=== PATIENT | female | born 1940 | race African-American/Black ===

== ENCOUNTER → 2020-04-16 13:02 | Outpatient (BNVA) | payer MEDICARE, SELFPAY | PROVIDERS: PCP Internal Medicine; Visit Provider Surgery Vascular Surgery | DX: I73.9 Peripheral vascular disease, unspecified (principal) | CPT/HCPCS: 99202 ==

== ENCOUNTER 2020-05-02 06:02 | Day surgery (SDC) | payer MEDICARE, SELFPAY ==
[2020-05-02] VITALS (10 sets, daily range): BP systolic 137–170; BP diastolic 54–78; PULSE 61–75; RESP 16; TEMP 36.1–36.2; O2SAT 97–100; BMI 34.6
[2020-05-02 06:26] LABS: MANUAL DIFF FLAG NO
[2020-05-02 06:27] LABS: Basophils Absolute Auto 0.1 X10*3/uL (0.0-0.2); Basophils Percent Auto 0.7 % (0-2); Eosinophils Absolute Auto 0.2 X10*3/uL (0.0-0.4); Eosinophils Percent Auto 2.6 % (0-4); Hematocrit 33.2 % (37-47); Imm Gran Abs Auto 0.04 X10*3/uL (0.00-0.03); Imm Gran Pct Auto 0.5 % (0.0-0.4); Lymphocytes Absolute Auto 2.1 X10*3/uL (1.2-4.9); Lymphocytes Percent Auto 24.5 % (20-40); Mean Corpuscular HGB Conc 33.1 g/dl (31.0-35.0); Mean Corpuscular Hemoglobin 28.4 pg (27.0-33.0); Mean Corpuscular Volume 85.6 fL (80-98); Mean Platelet Volume 8.1 fL (9.4-12.3); Monocytes Absolute Auto 0.7 X10*3/uL (0.1-1.2); Monocytes Percent Auto 8.4 % (2-11); Neutrophils Absolute Auto 5.3 X10*3/uL (2.0-8.3); Neutrophils Percent Auto 63.3 % (45-73); Platelet Count 429 X10*3/uL (160-400); Red Blood Count 3.88 X10*6/uL (4.20-5.50); Red Cell Distribution Width 12.6 % (11.0-16.0); White Blood Count 8.4 X10*3/uL (4.8-10.8)
[2020-05-02 06:50] LABS: Anion Gap 14 (12-20); Blood Urea Nitrogen 23 mg/dL (9-16); Carbon Dioxide 23 mmol/L (22-29); Chloride 98 mmol/L (96-108); Creatinine Clr Calc Pharmacy 33.7; Estimated Glomerular Filt Rate 31; Glucose Random 178 mg/dL (60-115); Potassium 4.7 mmol/l (3.3-5.1); Sodium 130 mmol/L (135-145)
[2020-05-02 06:54] LABS: Glucose, Whole Blood 168 mg/dL (60-115)
[2020-05-02 06:56] LABS: INTERNATIONAL NORM RATIO 0.9 (0.9-1.1); Prothrombin Time 10.6 SEC (10.8-13.0)
[2020-05-02 06:59] LABS: Partial Thromboplastin Time 41.6 SEC (24.1-38.0)
[2020-05-02] MEDS: iohexoL 300 MG/ML 100 ML INFUS..BTL IV (09:00)
[2020-05-02] MEDS: Lidocaine HCl 1 % MPF 5 ML VIAL 10 ML SUBCUT (09:01)
--- NOTE | 2020-05-03 12:46 | OP_ITS ---
SURGEON: Jason Draper MD INDICATIONS: Bebe is an 79-year-old female with prior noninvasive testing that demonstrates diminished flow. She has continued lower extremity pain and swelling. She now presents for endovascular intervention. Risks, benefits, and complications were discussed in detail with the patient. The patient understood and consented. PREOPERATIVE DIAGNOSIS: POSTOPERATIVE DIAGNOSIS: PROCEDURE PERFORMED: ESTIMATED BLOOD LOSS: Minimal. COMPLICATIONS: ANESTHESIA: Local with moderate conscious sedation performed by mo for a total 19 minutes. ASSISTANTS: SPECIMENS: None. PREPROCEDURE DIAGNOSIS: Atherosclerosis with activity limiting claudication. POSTPROCEDURE DIAGNOSIS: Atherosclerosis with activity limiting claudication PROCEDURES PERFORMED: 1. Ultrasound-guided left common femoral access. 2. Aortogram with right lower extremity runoff. DESCRIPTION OF PROCEDURE: The patient was brought to the angiography suite, prior to which, a time-out was called for patient identification and site verification. Bilateral groins were prepped and draped in standard surgical fashion. Under ultrasound guidance, left common femoral was accessed using micropuncture needle, wire, subsequently 4-Tongan sheath. Flush catheter was brought up to the level of the aorta. Aortogram was then undertaken, brought down to the level of the iliacs. This was subsequently imaged and then brought up and over into the right SFA, where it was parked, through which runoff study was undertaken. Of note, she had a right knee prosthetic. Multiple orthogonal views had to be taken to image the popliteal artery. Overall, no significant stenosis was identified. No intervention was indicated. Catheter, wire, and sheath were removed. Direct pressure was held for 10 minutes. The patient tolerated the procedure well, returned to Recovery with stable vitals. INTERPRETATION OF FILMS: 1. Ultrasound guidance demonstrated appropriate puncture. 2. Aortogram demonstrated no significant disease. Good flow down bilateral iliacs. 3. Right lower extremity study demonstrated appropriate flow through the common femoral, profunda, SFA all the way down to the popliteal and good 3-vessel runoff. CONCLUSION: Successful diagnostic angiogram. There appears to be no flow-limiting disease. At the current time, would continue with medical management. DRAINS: None. MD JORGE Shah/NABEEL / [phone]
== END 2020-05-02 23:59 | disposition home or self-care (01) ==
PROVIDERS: PCP Internal Medicine; Visit Provider Surgery Vascular Surgery
DX: E11.51 Type 2 diabetes mellitus with diabetic peripheral angiopathy without gangrene (principal); I70.201 Unspecified atherosclerosis of native arteries of extremities, right leg; M79.604 Pain in right leg
CPT/HCPCS: 36247; 36415; 75630; 75710; 76937; 80048; 82947; 85025; 85610; 85730; 99152; C1725; C1760; C1769; C1887; C1894; J2250; J3010; Q9967

== ENCOUNTER → 2020-06-07 09:14 | Outpatient (BNVA) | payer MEDICARE, SELFPAY | PROVIDERS: PCP Internal Medicine; Visit Provider Surgery Vascular Surgery | DX: I73.9 Peripheral vascular disease, unspecified (principal) | CPT/HCPCS: 99212 ==

== ENCOUNTER → 2020-08-07 10:40 | Outpatient (BNVA) | payer MEDICARE, SELFPAY | PROVIDERS: PCP Internal Medicine; Visit Provider Surgery Vascular Surgery | DX: I73.9 Peripheral vascular disease, unspecified (principal) | CPT/HCPCS: Q3014 ==

== ENCOUNTER 2020-08-15 06:14 | Day surgery (SDC) | payer MEDICARE, SELFPAY ==
[2020-08-15] VITALS (10 sets, daily range): BP systolic 145–164; BP diastolic 54–72; PULSE 64–78; RESP 16–20; TEMP 36.2–36.6; O2SAT 99–100; BMI 33.2
[2020-08-15 06:31] LABS: MANUAL DIFF FLAG NO
[2020-08-15 06:33] LABS: Basophils Absolute Auto 0.1 X10*3/uL (0.0-0.2); Basophils Percent Auto 0.7 % (0-2); Eosinophils Absolute Auto 0.2 X10*3/uL (0.0-0.4); Eosinophils Percent Auto 1.9 % (0-4); Hematocrit 33.4 % (37-47); Hemoglobin 10.8 g/dl (12.0-16.0); Imm Gran Abs Auto 0.05 X10*3/uL (0.00-0.03); Imm Gran Pct Auto 0.6 % (0.0-0.4); Lymphocytes Absolute Auto 1.4 X10*3/uL (1.2-4.9); Lymphocytes Percent Auto 16.1 % (20-40); Mean Corpuscular HGB Conc 32.3 g/dl (31.0-35.0); Mean Corpuscular Hemoglobin 28.3 pg (27.0-33.0); Mean Corpuscular Volume 87.4 fL (80-98); Mean Platelet Volume 8.3 fL (9.4-12.3); Monocytes Absolute Auto 0.6 X10*3/uL (0.1-1.2); Monocytes Percent Auto 6.9 % (2-11); Neutrophils Absolute Auto 6.5 X10*3/uL (2.0-8.3); Neutrophils Percent Auto 73.8 % (45-73); Platelet Count 428 X10*3/uL (160-400); Red Blood Count 3.82 X10*6/uL (4.20-5.50); Red Cell Distribution Width 13.2 % (11.0-16.0); White Blood Count 8.8 X10*3/uL (4.8-10.8)
[2020-08-15 06:45] LABS: INTERNATIONAL NORM RATIO 0.9 (0.9-1.1); Prothrombin Time 11.1 SEC (10.8-13.0)
[2020-08-15 06:47] LABS: Partial Thromboplastin Time 45.9 SEC (24.1-38.0)
[2020-08-15 07:02] LABS: Anion Gap 16 (12-20); Blood Urea Nitrogen 31 mg/dL (9-16); Calcium 9.1 mg/dL (8.4-10.2); Carbon Dioxide 23 mmol/L (22-29); Chloride 100 mmol/L (96-108); Creatinine Clr Calc Pharmacy 36.5; Estimated Glomerular Filt Rate 35; Glucose Random 184 mg/dL (60-115); Sodium 134 mmol/L (135-145)
[2020-08-15] MEDS: 0.9 % Sodium Chloride 1,000 ML 100 ML IVCONT (07:08)
[2020-08-15 07:12] LABS: Glucose, Whole Blood 163 mg/dL (60-115)
--- NOTE | 2020-08-15 08:43 | W.PM.OPN ---
Operative Note Operative Note Date of Service: 08/15/20 Narrative: Angiogram report from [facility] Preoperative diagnosis: Atherosclerosis of left lower extremity with activity limiting claudication Postoperative diagnosis: Same Procedure: 1. Ultrasound-guided right common femoral access 2. Aortogram with left lower extremity runoff Surgeon:Jason Draper M.D. Barrel Rifler Button:None Anesthesia: Local with moderate conscious sedation for a total of 26 minutes, performed by dc Specimens:none Drains:none Estimated blood loss: Less than 10 ml Indications: 79-year-old female with persistent left lower extremity claudication. She had noninvasive testing which demonstrated TBI of 0.31. Pain has continued to progress and was Re referred by primary care physician for re-evaluation. She now presents for endovascular intervention The patient has signed the informed consent after reviewing risks, complications, benefits, and alternatives previously discussed with the patient in my office. The patient was given the opportunity to ask any additional questions or voice any concerns. All questions were answered to the patient's satisfaction. Procedure in detail: Patient was brought to the angiography suite prior to which a time-out was called for patient identification and site verification. Bilateral groins were prepped and draped in the standard surgical fashion. Under ultrasound guidance right common femoral was punctured with micro puncture needle and wire. Subsequently a precision 4 [place] sheath was then placed. [employer] wire was advanced to the level of the aorta. 4 [place] Flush catheter was brought up and parked at the level of the renal arteries. Aortogram was then undertaken. Catheter was brought down to the level of the iliac bifurcation. Iliacs were subsequently imaged. Catheter was then brought in up and over to the left side SFA. Runoff study was then undertaken. No intervention was indicated catheter wire sheath was removed. Direct pressure was held for 10 minutes. Interpretation of films: 1. Ultrasound demonstrates appropriate femoral puncture. Image of which was saved. 2. Aortogram demonstrates appropriate caliber aorta. Minimal disease. Appropriate take-off of the renals. 3. Iliac images demonstrate normal flow throughout no significant stenosis 4. Left lower extremity demonstrated good flow through the common femoral profundus femoral S SFA was patent all the way throughout. There was no flow-limiting stenosis noted in the popliteal. Multiple orthogonal views had to be undertaken due to the hardware. Below-knee had good 3 vessel runoff although somewhat smaller in caliber but flow all the way down to the foot. Conclusion: 1. Successful diagnostic angiogram with no intervention indicated. This note is constructed using voice recognition software. While every effort has been made to ensure accuracy, rv service technician errors may have been included. Thank you for allowing me to participate in the care of your patient. Yours sincerely, Jason Draper MD, FACS, R.P.V.I.
[2020-08-15] MEDS: Lidocaine HCl 1 % MPF 5 ML VIAL 10 ML SUBCUT (08:55)
[2020-08-15] MEDS: iohexoL 300 MG/ML 100 ML INFUS..BTL IV (08:56)
== END 2020-08-15 13:15 | disposition home or self-care (01) ==
PROVIDERS: PCP Internal Medicine; Visit Provider Surgery Vascular Surgery
DX: E11.51 Type 2 diabetes mellitus with diabetic peripheral angiopathy without gangrene (principal); I70.212 Atherosclerosis of native arteries of extremities with intermittent claudication, left leg; Z79.4 Long term (current) use of insulin; I10 Essential (primary) hypertension; Z79.899 Other long term (current) drug therapy
CPT/HCPCS: 36246; 36247; 36415; 75630; 76937; 76942; 80048; 82947; 85025; 85610; 85730; 99152; 99153; C1769; C1887; J2250; J3010; Q9967

== ENCOUNTER 2020-11-27 10:38 | Outpatient (REF) | payer MEDICARE, SELFPAY ==
--- NOTE | ~2020-11-27 | US_ITS ---
EXAMINATION: ANKLE-BRACHIAL INDICES SINGLE LEVEL PULSE VOLUME RECORDING ARTERIAL DUPLEX BILATERAL LEGS CLINICAL INFORMATION: Peripheral vascular disease COMPARISON: None TECHNIQUE: Ankle-brachial indices and PVR at the ankle were obtained. Duplex Doppler of the bilateral lower extremity arterial systems was performed. FINDINGS: RIGHT: Ankle-brachial index: 1.26 PVR: Mildly abnormal. Common femoral: PSV 164 cm/s. Triphasic waveform. Deep femoral: PSV 150 cm/s. Biphasic waveform. Proximal superficial femoral: PSV 93 cm/s. Biphasic waveform. Mid superficial femoral: PSV 92 cm/s. Biphasic waveform. Distal superficial femoral: PSV 79 cm/s. Biphasic waveform. Popliteal: PSV 94 cm/s. Biphasic waveform. Posterior tibial artery: PSV 101 cm/s. Biphasic waveform. LEFT: Ankle-brachial index: 1.20 PVR: Mildly abnormal. Common femoral: PSV 146 cm/s. Biphasic waveform. Deep femoral: PSV 113 cm/s. Biphasic waveform. Proximal superficial femoral: PSV 87 cm/s. Biphasic waveform. Mid superficial femoral: PSV 96 cm/s. Biphasic waveform. Distal superficial femoral: PSV 84 cm/s. Biphasic waveform. Popliteal: PSV 100 cm/s. Biphasic waveform. Posterior tibial artery: PSV 87 cm/s. Biphasic waveform. US/US SALAS complete IMPRESSION: Normal ankle-brachial indices. Mildly abnormal PVRs. Ultrasound shows mild atherosclerotic plaque without hemodynamically significant disease.
--- NOTE | ~2020-11-27 | US_ITS ---
EXAMINATION: ANKLE-BRACHIAL INDICES SINGLE LEVEL PULSE VOLUME RECORDING ARTERIAL DUPLEX BILATERAL LEGS CLINICAL INFORMATION: Peripheral vascular disease COMPARISON: None TECHNIQUE: Ankle-brachial indices and PVR at the ankle were obtained. Duplex Doppler of the bilateral lower extremity arterial systems was performed. FINDINGS: RIGHT: Ankle-brachial index: 1.26 PVR: Mildly abnormal. Common femoral: PSV 164 cm/s. Triphasic waveform. Deep femoral: PSV 150 cm/s. Biphasic waveform. Proximal superficial femoral: PSV 93 cm/s. Biphasic waveform. Mid superficial femoral: PSV 92 cm/s. Biphasic waveform. Distal superficial femoral: PSV 79 cm/s. Biphasic waveform. Popliteal: PSV 94 cm/s. Biphasic waveform. Posterior tibial artery: PSV 101 cm/s. Biphasic waveform. LEFT: Ankle-brachial index: 1.20 PVR: Mildly abnormal. Common femoral: PSV 146 cm/s. Biphasic waveform. Deep femoral: PSV 113 cm/s. Biphasic waveform. Proximal superficial femoral: PSV 87 cm/s. Biphasic waveform. Mid superficial femoral: PSV 96 cm/s. Biphasic waveform. Distal superficial femoral: PSV 84 cm/s. Biphasic waveform. Popliteal: PSV 100 cm/s. Biphasic waveform. Posterior tibial artery: PSV 87 cm/s. Biphasic waveform. US/US arterial duplex LE BI IMPRESSION: Normal ankle-brachial indices. Mildly abnormal PVRs. Ultrasound shows mild atherosclerotic plaque without hemodynamically significant disease.
== END 2020-11-27 10:39 | disposition home or self-care (01) ==
LOC: HO.US 10:38
PROVIDERS: PCP Surgery Vascular Surgery; Visit Provider Surgery Vascular Surgery
DX: I73.9 Peripheral vascular disease, unspecified (principal)
CPT/HCPCS: 93923; 93925

== ENCOUNTER → 2020-12-06 14:58 | Outpatient (BNVA) | payer MEDICARE, SELFPAY | PROVIDERS: PCP Surgery Vascular Surgery; Visit Provider Surgery Vascular Surgery | DX: I73.9 Peripheral vascular disease, unspecified (principal) | CPT/HCPCS: 99212 ==

== ENCOUNTER 2021-11-28 09:42 | Outpatient (REF) | payer MEDICARE, SELFPAY ==
--- NOTE | ~2021-11-28 | US_ITS ---
EXAMINATION: Noninvasive assessment of the bilateral lower extremities with ARTERIAL DUPLEX and ANKLE BRACHIAL INDICES (ABIs). ? CLINICAL INFORMATION: Peripheral vascular disease ? TECHNIQUE: Duplex Doppler techniques with waveform analysis and measurement of velocities in the bilateral common femoral, profunda femoris, superficial femoral, popliteal and tibial arteries were performed. Additionally, ankle pulse volume recordings, ankle pressure measurements and ankle brachial indices were obtained of the lower extremity arterial system bilaterally. The study was performed only at rest. ? COMPARISON: 11/27/2020 ? FINDINGS: ? DIRECT DUPLEX DOPPLER FINDINGS: ? RIGHT LEG: Diffuse medial calcinosis/calcified plaque Common femoral artery:?156 cm/s, phasicity: Triphasic Profunda femoris artery:??141 cm/s, phasicity: Biphasic Superficial femoral artery (proximal):?108 cm/s, phasicity: Biphasic Superficial femoral artery (mid):?140 cm/s, phasicity: Biphasic Superficial femoral artery (distal):?109 cm/s, phasicity: Biphasic Popliteal artery:?69.2 cm/s, phasicity: Biphasic Posterior tibial artery:?137 cm/s, phasicity: Triphasic Peroneal artery:?82.7 cm/s, phasicity: Biphasic ? LEFT LEG: Diffuse medial calcinosis/calcified plaque Common femoral artery:?132 cm/s, phasicity: Triphasic Profunda femoris artery:?103?cm/s, phasicity: Biphasic Superficial femoral artery (proximal):?101?cm/s, phasicity: Biphasic Superficial femoral artery (mid):?141 cm/s, phasicity: Biphasic Superficial femoral artery (distal):?108?cm/s, phasicity: Biphasic Popliteal artery:?105?cm/s, phasicity: Biphasic Posterior tibial artery:?145?cm/s, phasicity: Triphasic Peroneal artery:?73.7 cm/s, phasicity: Biphasic ANKLE-BRACHIAL INDEX: ? Right: 1.53? Left: 1.53 ? ANKLE PRESSURES: ? Right: PT greater than 200, DP?greater than 200?? Left: PT?greater than 200, DP?greater than 200?? ? ANKLE PVR WAVEFORMS: ? Right: Normal Left: Normal? ? Right leg:???Supranormal ankle-brachial index with noncompressibility. Normal velocities and waveforms seen with diffuse calcinosis of the vessel rouse. No significant arterial stenosis or occlusion ? Left leg:??? Supranormal ankle-brachial index with noncompressibility. Normal velocities and waveforms seen with diffuse calcinosis of the vessel rouse. No significant arterial stenosis or occlusion ? ?? SALAS Reference: - >1.4 = calcified vessels - 0.9 - 1.4 = normal - no significant arterial disease - 0.7 - 0.89 = mild peripheral arterial disease - 0.51 - 0.69 = moderate peripheral arterial disease - ? 0.50 = severe peripheral arterial disease - < .30 = critical arterial disease US/US arterial duplex LE BI IMPRESSION: ?
== END 2021-11-28 09:43 | disposition home or self-care (01) ==
LOC: HO.US 09:42
PROVIDERS: Visit Provider Surgery Vascular Surgery
DX: I73.9 Peripheral vascular disease, unspecified (principal)
CPT/HCPCS: 93923; 93925

== ENCOUNTER → 2021-12-10 10:57 | Outpatient (BNVA) | payer MEDICARE, SELFPAY | PROVIDERS: PCP Internal Medicine; Visit Provider Surgery Vascular Surgery | DX: I73.9 Peripheral vascular disease, unspecified (principal) | CPT/HCPCS: 99212 ==

== ENCOUNTER 2022-05-29 12:52 | Outpatient (REF) | payer MEDICARE, SELFPAY ==
--- NOTE | ~2022-05-29 | US_ITS ---
EXAMINATION: NONINVASIVE ASSESSMENT OF THE ARTERIES OF BOTH LOWER EXTREMITIES WITH PVR EXAM AND BILATERAL LOWER EXTREMITY DUPLEX Maggie Samson MD CLINICAL INFORMATION: Peripheral vascular disease TECHNIQUE: Ankle pulse volume recordings, ankle pressure measurements and ankle brachial indices were obtained of the lower extremity arterial system bilaterally in addition to duplex Doppler techniques with wave form analysis and measurement of velocities in the common femoral, profunda femoral, superficial femoral, popliteal and tibial arteries. The study was performed only at rest. COMPARISON: Noninvasive arterial exam on 11/28/2021 FINDINGS: a) AT REST: RIGHT LE. The right ankle-brachial index is: 1.33 * >0.97-1.25 = normal - no significant arterial disease * 0.75-0.96 = mild peripheral arterial disease * 0.5-0.74 = moderate peripheral arterial disease * <0.50 = severe peripheral arterial disease 2. Right ankle pressure: Elevated 3. Right ankle PVR waveform: normal. 4. Right direct duplex Doppler findings: Common femoral artery: 165 cm/s, Multiphasic Profunda femoris artery: 141 cm/s, Multiphasic Superficial femoral artery (proximal): 110 cm/s, Multiphasic Superficial femoral artery (mid): 113 cm/s, Multiphasic Superficial femoral artery (distal): 72 cm/s, Multiphasic Proximal Popliteal artery: 60 cm/s, Multiphasic Mid posterior tibial artery: 79 cm/s, Multiphasic LEFT LE. The left ankle-brachial index is: 1.33 * >0.97-1.25 = normal - no significant arterial disease * 0.75-0.96 = mild peripheral arterial disease * 0.5-0.74 = moderate peripheral arterial disease * <0.50 = severe peripheral arterial disease 2. Left ankle pressure: Elevated 3. Left ankle PVR waveform: normal. 4. Left direct duplex Doppler findings: Common femoral artery: 142 cm/s, Multiphasic Profunda femoris artery: 112 cm/s, Multiphasic Superficial femoral artery (proximal): 89 cm/s, Multiphasic Superficial femoral artery (mid): 111 cm/s, Multiphasic Superficial femoral artery (distal): 72 cm/s, Multiphasic Proximal Popliteal artery: 61 cm/s, Multiphasic Mid posterior tibial artery: 96 cm/s, Multiphasic US/US SALAS complete IMPRESSION: Elevated bilateral ankle pressures and ABIs suggest noncompressibility. Bilateral atherosclerotic disease visualized on direct duplex. No hemodynamically significant stenoses.
--- NOTE | ~2022-05-29 | US_ITS ---
EXAMINATION: NONINVASIVE ASSESSMENT OF THE ARTERIES OF BOTH LOWER EXTREMITIES WITH PVR EXAM AND BILATERAL LOWER EXTREMITY DUPLEX Maggie Samson MD CLINICAL INFORMATION: Peripheral vascular disease TECHNIQUE: Ankle pulse volume recordings, ankle pressure measurements and ankle brachial indices were obtained of the lower extremity arterial system bilaterally in addition to duplex Doppler techniques with wave form analysis and measurement of velocities in the common femoral, profunda femoral, superficial femoral, popliteal and tibial arteries. The study was performed only at rest. COMPARISON: Noninvasive arterial exam on 11/28/2021 FINDINGS: a) AT REST: RIGHT LE. The right ankle-brachial index is: 1.33 * >0.97-1.25 = normal - no significant arterial disease * 0.75-0.96 = mild peripheral arterial disease * 0.5-0.74 = moderate peripheral arterial disease * <0.50 = severe peripheral arterial disease 2. Right ankle pressure: Elevated 3. Right ankle PVR waveform: normal. 4. Right direct duplex Doppler findings: Common femoral artery: 165 cm/s, Multiphasic Profunda femoris artery: 141 cm/s, Multiphasic Superficial femoral artery (proximal): 110 cm/s, Multiphasic Superficial femoral artery (mid): 113 cm/s, Multiphasic Superficial femoral artery (distal): 72 cm/s, Multiphasic Proximal Popliteal artery: 60 cm/s, Multiphasic Mid posterior tibial artery: 79 cm/s, Multiphasic LEFT LE. The left ankle-brachial index is: 1.33 * >0.97-1.25 = normal - no significant arterial disease * 0.75-0.96 = mild peripheral arterial disease * 0.5-0.74 = moderate peripheral arterial disease * <0.50 = severe peripheral arterial disease 2. Left ankle pressure: Elevated 3. Left ankle PVR waveform: normal. 4. Left direct duplex Doppler findings: Common femoral artery: 142 cm/s, Multiphasic Profunda femoris artery: 112 cm/s, Multiphasic Superficial femoral artery (proximal): 89 cm/s, Multiphasic Superficial femoral artery (mid): 111 cm/s, Multiphasic Superficial femoral artery (distal): 72 cm/s, Multiphasic Proximal Popliteal artery: 61 cm/s, Multiphasic Mid posterior tibial artery: 96 cm/s, Multiphasic US/US arterial duplex LE BI IMPRESSION: Elevated bilateral ankle pressures and ABIs suggest noncompressibility. Bilateral atherosclerotic disease visualized on direct duplex. No hemodynamically significant stenoses.
== END 2022-05-29 12:53 | disposition home or self-care (01) ==
LOC: HO.US 12:52
PROVIDERS: Visit Provider Surgery Vascular Surgery
DX: I73.9 Peripheral vascular disease, unspecified (principal)
CPT/HCPCS: 93923; 93925

== ENCOUNTER → 2022-08-25 14:07 | Outpatient (BNVA) | payer MEDICARE, SELFPAY | PROVIDERS: PCP Internal Medicine; Visit Provider Surgery Vascular Surgery | DX: I73.9 Peripheral vascular disease, unspecified (principal) | CPT/HCPCS: 99212 ==

== ENCOUNTER 2023-08-17 10:27 | Outpatient (REF) | payer MEDICARE, SELFPAY ==
--- NOTE | ~2023-08-17 | US_ITS ---
EXAMINATION: US arterial duplex LE BI, US SALAS complete CLINICAL INFORMATION: Peripheral vascular disease, unspecified COMPARISON: Arterial duplex 05/29/2022 TECHNIQUE: Ankle pulse volume recordings, ankle pressure measurements and ankle brachial indices were obtained of the lower extremity arterial system bilaterally in addition to duplex Doppler techniques with wave form analysis and measurement of velocities in the common femoral, profunda femoral, superficial femoral, popliteal, tibial and peroneal arteries. The study was performed only at rest. FINDINGS: RIGHT LE. THE RIGHT ANKLE-BRACHIAL INDEX IS: 1.31, compared to 1.33 on prior. 2. SEGMENTAL PRESSURES (mmHg): Ankle: PT 201, DP 201 3. PVR WAVEFORMS: Ankle: Abnormal 4. DIRECT DUPLEX: Common femoral artery: 63.9 cm/s, biphasic Profunda femoris artery: 66.6 cm/s, biphasic Superficial femoral artery (proximal): 124.2 cm/s, biphasic Superficial femoral artery (mid): 82 cm/s, biphasic Superficial femoral artery (distal): 95 cm/s, biphasic Proximal Popliteal artery: 63.5 cm/s, Multiphasic Distal popliteal artery: 53.6 cm/s, biphasic Mid posterior tibial artery: 61.3 cm/s, biphasic LEFT LE. THE LEFT ANKLE-BRACHIAL INDEX IS: 1.32, compared to 1.33 on prior. 2. SEGMENTAL PRESSURES: Ankle: PT 201, DP 203 3. PVR WAVEFORMS: Ankle: Abnormal 4. DIRECT DUPLEX: Common femoral artery: 77.1 cm/s, biphasic Profunda femoris artery: 88.9 cm/s, biphasic Superficial femoral artery (proximal): 102 cm/s, biphasic Superficial femoral artery (mid): 89.4 cm/s, biphasic Superficial femoral artery (distal): 76.6 cm/s, biphasic Proximal Popliteal artery: 96 cm/s, biphasic Distal popliteal artery: 51.3 cm/s, biphasic Mid posterior tibial artery: 53.7 cm/s, biphasic US/US SALAS complete IMPRESSION: 1. Elevated ankle pressures and ABIs bilaterally suggest noncompressibility. Bilateral atherosclerotic disease visualized on direct duplex. No significant change compared to 05/29/2022. 2. There is no evidence of any hemodynamically significant lower extremity arterial disease by pressure, waveform or duplex Doppler criteria at rest.
--- NOTE | ~2023-08-17 | US_ITS ---
EXAMINATION: US arterial duplex LE BI, US SALAS complete CLINICAL INFORMATION: Peripheral vascular disease, unspecified COMPARISON: Arterial duplex 05/29/2022 TECHNIQUE: Ankle pulse volume recordings, ankle pressure measurements and ankle brachial indices were obtained of the lower extremity arterial system bilaterally in addition to duplex Doppler techniques with wave form analysis and measurement of velocities in the common femoral, profunda femoral, superficial femoral, popliteal, tibial and peroneal arteries. The study was performed only at rest. FINDINGS: RIGHT LE. THE RIGHT ANKLE-BRACHIAL INDEX IS: 1.31, compared to 1.33 on prior. 2. SEGMENTAL PRESSURES (mmHg): Ankle: PT 201, DP 201 3. PVR WAVEFORMS: Ankle: Abnormal 4. DIRECT DUPLEX: Common femoral artery: 63.9 cm/s, biphasic Profunda femoris artery: 66.6 cm/s, biphasic Superficial femoral artery (proximal): 124.2 cm/s, biphasic Superficial femoral artery (mid): 82 cm/s, biphasic Superficial femoral artery (distal): 95 cm/s, biphasic Proximal Popliteal artery: 63.5 cm/s, Multiphasic Distal popliteal artery: 53.6 cm/s, biphasic Mid posterior tibial artery: 61.3 cm/s, biphasic LEFT LE. THE LEFT ANKLE-BRACHIAL INDEX IS: 1.32, compared to 1.33 on prior. 2. SEGMENTAL PRESSURES: Ankle: PT 201, DP 203 3. PVR WAVEFORMS: Ankle: Abnormal 4. DIRECT DUPLEX: Common femoral artery: 77.1 cm/s, biphasic Profunda femoris artery: 88.9 cm/s, biphasic Superficial femoral artery (proximal): 102 cm/s, biphasic Superficial femoral artery (mid): 89.4 cm/s, biphasic Superficial femoral artery (distal): 76.6 cm/s, biphasic Proximal Popliteal artery: 96 cm/s, biphasic Distal popliteal artery: 51.3 cm/s, biphasic Mid posterior tibial artery: 53.7 cm/s, biphasic US/US arterial duplex LE BI IMPRESSION: 1. Elevated ankle pressures and ABIs bilaterally suggest noncompressibility. Bilateral atherosclerotic disease visualized on direct duplex. No significant change compared to 05/29/2022. 2. There is no evidence of any hemodynamically significant lower extremity arterial disease by pressure, waveform or duplex Doppler criteria at rest.
== END 2023-08-17 10:28 | disposition home or self-care (01) ==
LOC: HO.US 10:27
PROVIDERS: Visit Provider Surgery Vascular Surgery
DX: I73.9 Peripheral vascular disease, unspecified (principal)
CPT/HCPCS: 93923; 93925

== ENCOUNTER 2023-08-27 14:02 | Outpatient (AMB) | payer MEDICARE, SELFPAY ==
--- NOTE | 2023-08-27 14:05 | A.OFFVIS_ITS ---
Intake Intake Visit Reasons: 6 mo follow up Arterial US 08/17/2023 Intake Note: Patient presents for follow up s/p 08/16 arterial US. States she does not have cramping but sometimes loses feeling Accompanied by: Self / Same As Patient Allergies No Known Allergies Allergy (Verified 08/27/23 14:08) HPI 6 mo follow up Arterial US 08/17/2023 HPI Details Very pleasant 82-year-old female presents for routine surveillance follow-up regarding peripheral vascular disease. She has been seeing me for several years and appears to be doing relatively well. She reports that her biggest complaint is back pain issues. She does require the use of a cane more so for balance. She is able to walk a few 100 ft. She is able to tolerate daily activities and is able to do things around her house. She now presents for routine surveillance follow-up. [facility] Medical History Hypertension Diabetes Surgical History Knee joint replacement status Social History Second Hand Smoke Exposure: No Advance Directives Date on File: 05/02/20 Review of Systems Const All systems reviewed & are unremarkable except as noted in HPI and below Reports no additional complaints ENT Reports Normal hearing present Card Denies chest pain, Denies chest pain at rest, Denies chest pain with activity and Denies pedal edema Resp Denies cough GI Denies abdominal pain Musc Denies abnormal gait, Denies muscle cramps and Denies radiating pain into limb Skin/Breast Denies skin ulcer and Denies wounds Neuro Reports Normal hearing present and Denies abnormal gait Psych Reports no additional complaints Physical Exam Const General: cooperative, healthy appearing and comfortable Orientation/consciousness: oriented to person, oriented to place and oriented to time HEENT Head: Yes normal to inspection Neck Neck: Yes normal visual inspection Carotids: no bruits Chest Chest palpation & inspection: normal inspection of the chest Resp Effort & Inspection: normal respiratory effort and able to speak in complete sentences Auscultation: clear to auscultation bilaterally, no crackles, no rales, no rhonchi and no wheezes Cardio Other: Bilateral DP signals Rate: regular rate Rhythm: regular rhythm Heart sounds: S1 normal heart sound present and S2 normal heart sound present Bruits: no carotid bruits GI Inspection: Yes normal to inspection Skin Wounds: no wounds Hair: normal Neuro General: oriented to person, oriented to place and oriented to time Cranial nerves: Yes CN's II-XII intact bilaterally and Yes Normal hearing present Cognition (Neuro): normal cognition Motor exam (neuro): 5/5 motor strength present throughout Extrem Other: venous exam: No significant superficial varicosities or spider telangiectasias, minimal edema General: No clubbing, No cyanosis and No edema Psych Appearance: grossly normal Mental Status: mental status grossly normal Speech and movement: Normal speech and movement present Results Reviewed Results Reviewed: Noninvasive testing dated 08/17/2023 demonstrates SALAS on the right of 1.31 and on the left 1.32 with no significant arterial disease on direct ultrasound Assessment & Plan Assessment & Plan (1) PAD (peripheral artery disease): Code(s): I73.9 - Peripheral vascular disease, unspecified Plan: In short patient has stable claudication. I did review the pathophysiology of peripheral vascular disease with the patient. In addition we did discuss routine conservative measures including a healthy diet and the importance of exercise and ambulation. We did discuss risk factor modification. The patient will continue to to follow-up with surveillance follow-up in approximately 1 year. Thank you for allowing us to participate in this patient's care. If there are any questions or concerns please do not hesitate to contact us. Orders: Orders US arterial duplex LE BI 1 Year I73.9 - Peripheral vascular disease, unspecified Coding Level of Care Code Est Pt Level 4 (13153) Diagnoses PAD (peripheral artery disease) I73.9
== END 2023-08-27 14:26 | disposition home or self-care (01) ==
PROVIDERS: Visit Provider Surgery Vascular Surgery
DX: I73.9 Peripheral vascular disease, unspecified (principal)
CPT/HCPCS: 99213

== ENCOUNTER → 2023-08-27 14:02 | Outpatient (BNVA) | payer MEDICARE, SELFPAY | PROVIDERS: Visit Provider Surgery Vascular Surgery | DX: I73.9 Peripheral vascular disease, unspecified (principal) | CPT/HCPCS: 99212 ==